=== PATIENT | male | born 1995 ===

== ENCOUNTER 2017-08-05 05:25 | Emergency (ER) | payer MEDICAID ==
[2017-08-05 05:31] VITALS: O2SAT 100
--- NOTE | 2017-08-05 06:30 | ED PDOC ---
HPI: General Adult Time Seen by Provider: 08/05/17 05:41 Chief Complaint (Nursing): Medical Clearance Chief Complaint (Provider): Medical Clearance History Per: Patient, Other ([place] [employer]) Onset/Duration Of Symptoms: Mins (prior to arrival) Current Symptoms Are (Timing): Still Present Additional Complaint(s): Jelani Soler is a 22 year old male with no past medical history, who was brought to the ER by [employer] for medical clearance. According to the police, patient was with them when they got another call, so as mobile patrol officer walked away, patient tripped the mobile patrol officer. Patient complains of mild left knee pain and abrasion, but denies any weakness, numbness, suicidal ideation, homicidal ideation, hallucinations, or drug use. Patient admits to drinking alcohol for the last 7 hours. He denies any other injury or medical complaints. PMD: none provided Past Medical History Reviewed: Historical Data, Nursing Documentation, Vital Signs Vital Signs: Last Vital Signs Temp 97.9 F 08/05/17 08:07 Pulse 78 08/05/17 08:07 Resp 17 08/05/17 08:07 BP 112/82 08/05/17 08:07 Pulse Ox 100 08/05/17 08:07 - Medical History PMH: No Chronic Diseases - Surgical History Surgical History: No Surg Hx - Family History Family History: States: Unknown Family Hx - Social History Current smoker - smoking cessation education provided: No Alcohol: Occasional Drugs: Denies - Allergies Allergies/Adverse Reactions: Allergies Allergy/AdvReac Type Severity Reaction Status Date / Time No Known Allergies Allergy Verified 08/05/17 05:32 Review of Systems ROS Statement: Except As Marked, All Systems Reviewed And Found Negative Musculoskeletal: Positive for: Leg Pain (left knee pain and abrasions) Neurological: Negative for: Weakness, Numbness Psych: Negative for: Suicidal ideation, Other (homicidal ideation, hallucinations) Physical Exam - Reviewed Nursing Documentation Reviewed: Yes Vital Signs Reviewed: Yes - Physical Exam Appears: Positive for: Well, No Acute Distress Head Exam: Positive for: ATRAUMATIC, NORMOCEPHALIC Skin: Positive for: Warm, Dry Eye Exam: Positive for: EOMI, PERRL ENT: Positive for: Normal ENT Inspection Neck: Positive for: Painless ROM, Trachea Midline Cardiovascular/Chest: Positive for: Regular Rate, Rhythm Respiratory: Positive for: Normal Breath Sounds. Negative for: Respiratory Distress Gastrointestinal/Abdominal: Positive for: Soft. Negative for: Tenderness Back: Positive for: Normal Inspection. Negative for: Decreased ROM Extremity: Positive for: Normal ROM (full), Other (abrasion to left knee, (-) laxity). Negative for: Deformity Lymphatic: Negative for: Adenopathy Neurologic/Psych: Positive for: Alert. Negative for: Motor/Sensory Deficits - ECG O2 Sat by Pulse Oximetry: 100 (RA) Pulse Ox Interpretation: Normal Medical Decision Making Medical Decision Making: Time: 6:07 Impression: left knee contusion Patient is medically stable for incarceration. Crisis evaluation ordered for psychiatric evaluation. 6:30 Patient began feeling nauseous while in the ED. Scribe Attestation: Documented by Lalita Staley acting as a scribe for Rivka Solares MD. Scribe Attestation: All medical record entries made by the Scribe were at my direction and personally dictated by me. I have reviewed the chart and agree that the record accurately reflects my personal performance of the history, physical exam, medical decision making, and the department course for this patient. I have also personally directed, reviewed, and agree with the discharge instructions and disposition. Disposition - Clinical Impression Clinical Impression: Contusion of left knee - Patient ED Disposition Is Patient to be Admitted: Transfer of Care - Disposition Disposition Time: 07:00 Condition: STABLE Additional Instructions: Medically and psychiatrically stable for police custody/incarceration at this time. Patient Signed Over To: Vladislav Dobbs III Handoff Comments: Pending Crisis eval and final ER dispo
--- NOTE | 2017-08-05 08:01 | ED PDOC ---
- ECG O2 Sat by Pulse Oximetry: 100 (RA) Pulse Ox Interpretation: Normal Medical Decision Making Medical Decision Making: Cleared for discharge per crisis /Dr Bryan On-re-eval no vomiting, awake and vitals stable Disposition Counseled Patient/Family Regarding: Studies Performed, Diagnosis, Need For Followup - Clinical Impression Clinical Impression: Contusion of left knee - POA Present On Arrival: None - Disposition Disposition: Discharged/Transfer to Law Enforcement Disposition Time: 08:00 Condition: STABLE Additional Instructions: Medically and psychiatrically stable for police custody/incarceration at this time. Instructions: Contusion (DC)
[2017-08-05 08:08] VITALS: BP 112/82; PULSE 78; RESP 17; TEMP 97.9
== END 2017-08-05 08:10 ==
LOC: H.ER 05:25
DX: S80.02XA Contusion of left knee, initial encounter (principal)